=== PATIENT | female | born 1995 | race Caucasian/White ===

== ENCOUNTER → 2018-04-21 14:03 | Outpatient (REF) | payer OTHER, SELFPAY ==
[2018-04-24 10:59] LABS: QuantiFERON TB NEGATIVE (Negative)
== END ==
LOC: LAB 14:03
PROVIDERS: Visit Provider Family Medicine
DX: Z11.1 Encounter for screening for respiratory tuberculosis (principal)
CPT/HCPCS: 86480

== ENCOUNTER → 2019-07-06 09:13 | Outpatient (CLI) | payer OTHER, SELFPAY | DX: Z23 Encounter for immunization (principal) | CPT/HCPCS: 90471; 90686 ==

== ENCOUNTER → 2020-05-24 07:39 | Outpatient (CLI) | payer OTHER, SELFPAY | PROVIDERS: Referring Provider Internal Medicine; Visit Provider Internal Medicine | DX: Z23 Encounter for immunization (principal) | CPT/HCPCS: 90471; 90686 ==

== ENCOUNTER → 2020-09-02 14:43 | Outpatient (CLI) | payer OTHER, SELFPAY ==
[2020-09-02] MEDS: COVID-19 VACC #1, MRNA(MOD) 100 MCG/0.5 ML VIAL IM (14:49)
== END ==
PROVIDERS: Visit Provider Internal Medicine
DX: Z23 Encounter for immunization (principal)
CPT/HCPCS: 0011A; 91301

== ENCOUNTER → 2020-09-30 12:31 | Outpatient (CLI) | payer OTHER, SELFPAY ==
[2020-09-30] MEDS: COVID-19 VACC #2, MRNA(MOD) 100 MCG/0.5 ML VIAL IM (12:46)
== END ==
PROVIDERS: Visit Provider Internal Medicine
DX: Z23 Encounter for immunization (principal)
CPT/HCPCS: 0012A; 91301